=== PATIENT | male | born 1990 | race Caucasian/White ===

== ENCOUNTER 2017-03-19 18:02 | Emergency (ER) | payer OTHER ==
[~2017-03-19] VITALS: Ht 172.7 cm; Wt 82.1 kg
[~2017-03-19 18:02] MED LIST: KEFLEX500 MG PO; PERCOCET 5/31 TABLET PO; ZOFRAN4 MG PO
[2017-03-19 20:19] LABS: MCHC 32.8 G/DL (30.0-36.0); MCV 85.2 FL (86-99); MEAN PLAT.VOLUME 10.6 uM^3 (9.0-12.4); PLATELET COUNT 199 K/uL (156-360); RBC DIS.WIDTH-CV 12.8 % (11.8-14.6); RBC DIS.WIDTH-SD 39.7 % (39-53); WHITE BLOOD COUNT 8.9 K/uL (4.1-10.2)
[2017-03-19 20:33] LABS: CHLORIDE 102 mEq/L (99-109); POTASSIUM 4.1 mEq/L (3.7-5.4); SODIUM 141 mEq/L (136-147)
[2017-03-19 20:35] LABS: GLUCOSE 90 mg/dL (70-99)
[2017-03-19 20:36] LABS: ANION GAP 11 MEQ/L (2-14)
[2017-03-19 20:39] LABS: GFR ESTIMATE (CALCULATED) > 59 mL/min/
[2017-03-19 20:40] LABS: UREA NITROGEN (BUN) 13 mg/dL (9-23)
[2017-03-19] MEDS ORDERED: CLEOCIN300 MG PO (20:50)
[2017-03-19 21:17] VITALS: BP 136/82
== END 2017-03-19 21:18 | disposition home or self-care (01) ==
LOC: EME 18:02
PROVIDERS: Physician Assistant Medical
DX: L03.312 Cellulitis of back [any part except buttock and flank] (principal); R11.2 Nausea with vomiting, unspecified; R10.9 Unspecified abdominal pain
CPT/HCPCS: 80048; 83605; 85027; 87040; 99281; 99283